=== PATIENT | male | born 1950 | race Hispanic/Latino ===

== ENCOUNTER 2021-09-11 07:14 | Inpatient (IN) | payer MEDICARE ==
[2021-09-09 11:58] LABS: BASOPHILS % 0.3 % (0.0-1.0); EOSINOPHILS % 0.4 % (0.0-6.0); HEMATOCRIT 49.5 % (38.2-49.6); HEMOGLOBIN 15.9 g/dL (14.0-18.0); LYMPHOCYTES # (AUTO) 2.3 (1.0-3.2); LYMPHOCYTES % 25.1 % (18.0-39.1); MEAN CORPUSCULAR HEMOGLOBIN 30.1 pg (28-32); MEAN CORPUSCULAR HGB CONC 32.1 g/dL (31-35); MEAN CORPUSCULAR VOLUME 93.8 fL (81-99); MONOCYTES # (AUTO) 0.8 (0.2-0.8); MONOCYTES % 8.9 % (4.4-11.3); NEUTROPHILS % 64.9 % (38.7-80.0); PLATELET COUNT 155 x10e3/uL (140-360); RED BLOOD COUNT 5.28 x10e6/uL (4.3-5.7); RED CELL DISTRIBUTION WIDTH 12.3 % (11.7-14.4)
[2021-09-09 12:18] LABS: CALCIUM 9.2 mg/dL (8.4-10.2); CREATININE, SERUM 1.06 mg/dL (0.72-1.25)
[~2021-09-11] VITALS: Ht 165.1 cm; Wt 73.5 kg
[~2021-09-11 07:14] MED LIST: ALLOPURINOL300 MG PO; ASPIRIN81 MG PO; ATORVASTATIN CA10 MG PO; CEFTRIAXONE 1 GM VIAL ONE; FLOMAX0.4 MG PO; GENTAMICIN 80MG/NS 100 ML 200 ML IV ONE; METOPROLOL SUCC25 MG PO; POTASSIUM CHLO10 ME1 PO; PRAMIPEXOLE DIHY1 MG PO; SERTRALINE HCL50 MG PO; SODIUM CHLORIDE 0.9% 1000ML 1,000 ML ONE
[2021-09-11] MEDS ORDERED: B&O 60MG R/S 60 MG SUPP PR ONE (08:30)
[2021-09-11] MEDS ORDERED: IOPAMIDOL 300MG/ML 50ML INFUS..BTL IV ONE (08:31)
[2021-09-11] MEDS ORDERED: DIPHENHYDRAMINE HCL 25 MG CAP PO PRN (11:15)
[2021-09-11] MEDS ORDERED: B&O 60MG R/S 60 MG SUPP PR PRN (11:15)
[2021-09-11] MEDS ORDERED: ONDANSETRON HCL INJ 2MG/ML 2ML 2 MG/ML VIAL IV PRN (11:15)
[2021-09-11] MEDS ORDERED: PHENAZOPYRIDINE HCL 100 MG TAB PO PRN (11:15)
[2021-09-11 11:42] LABS: BASOPHILS % 0.1 % (0.0-1.0); EOSINOPHILS % 0.1 % (0.0-6.0); HEMATOCRIT 47.8 % (38.2-49.6); HEMOGLOBIN 15.2 g/dL (14.0-18.0); LYMPHOCYTES # (AUTO) 1.2 (1.0-3.2); LYMPHOCYTES % 12.4 % (18.0-39.1); MEAN CORPUSCULAR HGB CONC 31.8 g/dL (31-35); MEAN CORPUSCULAR VOLUME 94.3 fL (81-99); MONOCYTES # (AUTO) 0.2 (0.2-0.8); MONOCYTES % 2.1 % (4.4-11.3); PLATELET COUNT 139 x10e3/uL (140-360); RED BLOOD COUNT 5.07 x10e6/uL (4.3-5.7); RED CELL DISTRIBUTION WIDTH 12.3 % (11.7-14.4)
[2021-09-11 11:59] LABS: ANION GAP 8.9 mmol/L (8-16); CALCIUM 7.5 mg/dL (8.4-10.2); CREATININE, SERUM 0.94 mg/dL (0.72-1.25); POTASSIUM 4.9 mmol/L (3.5-5.1)
[2021-09-11] MEDS ORDERED: FENTANYL CITRATE/PF 100MCG/2 ML INJ ONE ×2 (12:21→17:10)
[2021-09-11 12:53] VITALS: BP 138/85
[2021-09-11] MEDS: SODIUM CHLORIDE 0.9% 1000ML 1,000 ML IV SCH (13:22)
[2021-09-11 13:35] VITALS: BP 127/82
[2021-09-11] MEDS: PRAMIPEXOLE DIHYDROCHLORIDE 1 MG TAB PO SCH ×2 (15:20→21:19)
[2021-09-11 16:11] VITALS: BP 120/71
[2021-09-11] MEDS ORDERED: MIDAZOLAM HCL 2 MG/2 ML VIAL ONE (17:10)
[2021-09-11] MEDS ORDERED: DEXAMETHASONE SOD PHOS INJ 4 MG/ML SDV ONE (17:15)
[2021-09-11] MEDS ORDERED: EPHEDRINE SULFATE INJ 50 MG/ML VIAL ONE (17:15)
[2021-09-11] MEDS ORDERED: ONDANSETRON HCL INJ 2MG/ML 2ML 2 MG/ML VIAL ONE (17:15)
[2021-09-11] MEDS ORDERED: LIDOCAINE HCL 2% LOCAL INJ 5 ML SDV VIAL INJ ONE (17:15)
[2021-09-11] MEDS ORDERED: POVIDONE IODINE 0.05% 0.05 % ML PO ONE (17:15)
[2021-09-11] MEDS ORDERED: PROPOFOL IV EMULSION 10 MG/ML 20 ML VIAL ONE (17:15)
[2021-09-11] MEDS ORDERED: SEVOFLURANE INHAL SOLN 250 ML PEN BTL ONE (17:15)
[2021-09-11] MEDS: ACETAMINOPHEN/CODEINE 300MG - 30MG TAB PO PRN ×2 (18:04→22:05)
[2021-09-11] MEDS: DOCUSATE SODIUM 100 MG CAP PO SCH (18:04)
[2021-09-11 20:00] VITALS: BP 113/65
[2021-09-11 21:30] VITALS: BP 113/65
[2021-09-12] VITALS (7 sets, daily range): BP systolic 121–145; BP diastolic 70–78
[2021-09-12] MEDS: SODIUM CHLORIDE 0.9% 1000ML 1,000 ML IV SCH ×2 (02:30→15:36)
[2021-09-12 05:37] LABS: BASOPHILS % 0.2 % (0.0-1.0); HEMOGLOBIN 15.5 g/dL (14.0-18.0); LYMPHOCYTES # (AUTO) 1.7 (1.0-3.2); LYMPHOCYTES % 9.3 % (18.0-39.1); MEAN CORPUSCULAR HEMOGLOBIN 30.1 pg (28-32); MEAN CORPUSCULAR VOLUME 91.3 fL (81-99); MONOCYTES # (AUTO) 1.2 (0.2-0.8); MONOCYTES % 6.6 % (4.4-11.3); NEUTROPHILS # (AUTO) 15.1 (2.1-6.9); NEUTROPHILS % 83.3 % (38.7-80.0); PLATELET COUNT 158 x10e3/uL (140-360); RED BLOOD COUNT 5.15 x10e6/uL (4.3-5.7); RED CELL DISTRIBUTION WIDTH 12.1 % (11.7-14.4)
[2021-09-12 06:09] LABS: ANION GAP 8.9 mmol/L (8-16); CALCIUM 7.7 mg/dL (8.4-10.2); CREATININE, SERUM 0.91 mg/dL (0.72-1.25); POTASSIUM 3.9 mmol/L (3.5-5.1)
[2021-09-12] MEDS: ACETAMINOPHEN/CODEINE 300MG - 30MG TAB PO PRN ×2 (07:45→20:50)
[2021-09-12] MEDS: DOCUSATE SODIUM 100 MG CAP PO SCH ×2 (08:24→17:15)
[2021-09-12] MEDS: PRAMIPEXOLE DIHYDROCHLORIDE 1 MG TAB PO SCH ×3 (08:24→20:50)
[2021-09-12] MEDS: MAGNESIUM OXIDE 400 MG TAB PO SCH ×2 (09:35→17:15)
[2021-09-13] VITALS (7 sets, daily range): BP systolic 122–149; BP diastolic 78–93
[2021-09-13] MEDS: SODIUM CHLORIDE 0.9% 1000ML 1,000 ML IV SCH ×2 (05:47→14:11)
[2021-09-13 05:52] LABS: BASOPHILS % 0.4 % (0.0-1.0); EOSINOPHILS # (AUTO) 0.1 (0.0-0.4); EOSINOPHILS % 0.6 % (0.0-6.0); HEMATOCRIT 46.5 % (38.2-49.6); HEMOGLOBIN 15.2 g/dL (14.0-18.0); LYMPHOCYTES # (AUTO) 2.2 (1.0-3.2); LYMPHOCYTES % 19.9 % (18.0-39.1); MEAN CORPUSCULAR HEMOGLOBIN 30.3 pg (28-32); MEAN CORPUSCULAR HGB CONC 32.7 g/dL (31-35); MEAN CORPUSCULAR VOLUME 92.8 fL (81-99); MONOCYTES # (AUTO) 1.2 (0.2-0.8); MONOCYTES % 10.7 % (4.4-11.3); NEUTROPHILS # (AUTO) 7.4 (2.1-6.9); PLATELET COUNT 130 x10e3/uL (140-360); RED BLOOD COUNT 5.01 x10e6/uL (4.3-5.7); RED CELL DISTRIBUTION WIDTH 12.3 % (11.7-14.4)
[2021-09-13 06:08] LABS: ANION GAP 7.7 mmol/L (8-16); CALCIUM 7.6 mg/dL (8.4-10.2); CREATININE, SERUM 0.98 mg/dL (0.72-1.25); POTASSIUM 3.7 mmol/L (3.5-5.1)
[2021-09-13] MEDS: LEVOFLOXACIN 500 MG TAB PO SCH (09:29)
[2021-09-13] MEDS: TAMSULOSIN HCL 0.4 MG CAP PO SCH (09:29)
[2021-09-13] MEDS: DOCUSATE SODIUM 100 MG CAP PO SCH ×2 (09:29→16:54)
[2021-09-13] MEDS: PRAMIPEXOLE DIHYDROCHLORIDE 1 MG TAB PO SCH ×3 (09:30→21:04)
[2021-09-13] MEDS: ALLOPURINOL 300 MG TAB PO SCH (09:30)
[2021-09-13] MEDS: MAGNESIUM OXIDE 400 MG TAB PO SCH ×2 (09:30→16:54)
[2021-09-13] MEDS: METOPROLOL SUCCINATE 25 MG TAB XL PO SCH (09:30)
[2021-09-13] MEDS: SERTRALINE HCL 50 MG TAB PO SCH (09:30)
[2021-09-13] MEDS ORDERED: ONDANSETRON HCL 4 MG ORAL DISINTEGRATING TAB PO PRN (12:30)
[2021-09-13] MEDS ORDERED: ATORVASTATIN 10 MG TAB PO SCH (21:00)
[2021-09-14] VITALS: BP 138/76
[2021-09-14 04:00] VITALS: BP 153/87
[2021-09-14 05:50] LABS: BASOPHILS % 0.3 % (0.0-1.0); EOSINOPHILS # (AUTO) 0.1 (0.0-0.4); EOSINOPHILS % 0.5 % (0.0-6.0); HEMOGLOBIN 15.4 g/dL (14.0-18.0); LYMPHOCYTES # (AUTO) 1.3 (1.0-3.2); LYMPHOCYTES % 13.1 % (18.0-39.1); MEAN CORPUSCULAR HEMOGLOBIN 29.8 pg (28-32); MEAN CORPUSCULAR HGB CONC 32.8 g/dL (31-35); MEAN CORPUSCULAR VOLUME 90.9 fL (81-99); MONOCYTES # (AUTO) 1.1 (0.2-0.8); MONOCYTES % 11.6 % (4.4-11.3); NEUTROPHILS # (AUTO) 7.1 (2.1-6.9); PLATELET COUNT 117 x10e3/uL (140-360); RED BLOOD COUNT 5.17 x10e6/uL (4.3-5.7)
[2021-09-14 06:15] LABS: ANION GAP 9.7 mmol/L (8-16); CALCIUM 7.8 mg/dL (8.4-10.2); CREATININE, SERUM 0.86 mg/dL (0.72-1.25); POTASSIUM 3.7 mmol/L (3.5-5.1)
[2021-09-14 08:15] VITALS: BP 143/83
[2021-09-14 08:18] VITALS: BP 143/83
[2021-09-14] MEDS: DOCUSATE SODIUM 100 MG CAP PO SCH (09:26)
[2021-09-14] MEDS: MAGNESIUM OXIDE 400 MG TAB PO SCH (09:26)
[2021-09-14] MEDS: PRAMIPEXOLE DIHYDROCHLORIDE 1 MG TAB PO SCH ×2 (09:26→14:52)
[2021-09-14] MEDS: LEVOFLOXACIN 500 MG TAB PO SCH (09:26)
[2021-09-14] MEDS: TAMSULOSIN HCL 0.4 MG CAP PO SCH (09:26)
[2021-09-14] MEDS: ALLOPURINOL 300 MG TAB PO SCH (09:27)
[2021-09-14] MEDS: SERTRALINE HCL 50 MG TAB PO SCH (09:27)
[2021-09-14] MEDS: METOPROLOL SUCCINATE 25 MG TAB XL PO SCH (09:27)
[2021-09-14 11:46] VITALS: BP 141/80
[2021-09-14] MEDS: SODIUM CHLORIDE 0.9% 1000ML 1,000 ML IV SCH (13:00)
[2021-09-14 15:02] VITALS: BP 146/79
== END 2021-09-14 15:16 | disposition home or self-care (01) | DRG 714 ==
LOC: OR 07:14 → PACU V 11:05 → MED/SURG 12:33
PROVIDERS: ADMIT Internal Medicine; ATTEND Internal Medicine
PROC: 0V508ZZ Destruction of Prostate, Via Natural or Artificial Opening Endoscopic (ICD-10-PCS; 2021-09-11)
PROC: BT141ZZ Fluoroscopy of Kidneys, Ureters and Bladder using Low Osmolar Contrast (ICD-10-PCS; 2021-09-11)
PROC: 0T788ZZ Dilation of Bilateral Ureters, Via Natural or Artificial Opening Endoscopic (ICD-10-PCS; principal; 2021-09-11 08:56)
DX: N40.1 Benign prostatic hyperplasia with lower urinary tract symptoms (principal); R33.8 Other retention of urine; R31.0 Gross hematuria; D72.829 Elevated white blood cell count, unspecified; N43.3 Hydrocele, unspecified; I25.10 Atherosclerotic heart disease of native coronary artery without angina pectoris; Z95.1 Presence of aortocoronary bypass graft; E78.5 Hyperlipidemia, unspecified; G20 Parkinson's disease; G47.33 Obstructive sleep apnea (adult) (pediatric); D75.1 Secondary polycythemia; N31.9 Neuromuscular dysfunction of bladder, unspecified
CPT/HCPCS: 36415; 71046; 74420; 80048; 83735; 85025; 94799; J0696; J1100; J1580; J2001; J2250; J2405; J3010; J7030; U0002

== ENCOUNTER → 2023-12-01 | Outpatient (REF) | payer MEDICARE ==
[~2023-12-01] MED LIST changes: +AMANTADINE100 MG; +ASPIRIN EC81 MG PO; +AVODART0.5 MG PO; +BUSPIRONE HCL10 MG PO; -CEFTRIAXONE 1 GM VIAL ONE; +FAMOTIDINE20 MG PO; -GENTAMICIN 80MG/NS 100 ML 200 ML IV ONE; +IOPAMIDOL 370 MG/ML 100 ML INFUS..BTL INJ ONE; +METFORMIN HCL500 MG PO; +OLANZAPINE5 MG PO; +OMEPRAZOLE40 MG PO; +POTASSIUM CITR10 MEQ PO; +SEROQUEL25 MG PO; +SINEMET 25-1001 EACH PO; -SODIUM CHLORIDE 0.9% 1000ML 1,000 ML ONE; +TRAZODONE HCL50 MG PO; +VITAMIN C1000 MG PO; +VITAMIN D350 MCG; +iron PO; +potassium citrate PO
[2023-12-01 14:26] LABS: CREATININE, SERUM 1.18 mg/dL (0.72-1.25)
== END ==
LOC: CT 13:27 → MERGE 14:00
PROVIDERS: ATTEND Urology
DX: C64.2 Malignant neoplasm of left kidney, except renal pelvis (principal); D41.02 Neoplasm of uncertain behavior of left kidney; D40.0 Neoplasm of uncertain behavior of prostate; N28.1 Cyst of kidney, acquired
CPT/HCPCS: 36415; 74178; 82565; 84520; Q9967

== ENCOUNTER → 2024-06-14 | Outpatient (REF) | payer MEDICARE ==
[~2024-06-14] MED LIST changes: -IOPAMIDOL 370 MG/ML 100 ML INFUS..BTL INJ ONE
== END ==
LOC: US 08:53
PROVIDERS: ATTEND Urology
DX: C67.9 Malignant neoplasm of bladder, unspecified (principal)
CPT/HCPCS: 71046; 76770; 76857

== ENCOUNTER → 2025-03-23 | Outpatient (REF) | payer MEDICARE | LOC: US 08:26 | PROVIDERS: ATTEND Urology | DX: C67.9 Malignant neoplasm of bladder, unspecified (principal); N28.1 Cyst of kidney, acquired | CPT/HCPCS: 76770; 76857 ==